=== PATIENT | male | born 1930 | race Caucasian/White ===

== ENCOUNTER → 2020-11-19 | Outpatient (REF) | payer MEDICARE ==
[~2020-11-19] MED LIST: CIPR25SS OR; COVI100V IM; HYDR25TA6 OR; LISI10TA4 OR; LISI20TA33 PO; METF500T13 PO; SIMV10TA2 OR; SIMV20TA2 OR; SIMV40TA20 PO; VICO5TAB OR
[2020-11-19 10:52] LABS: HEMOGLOBIN A1c 6.2 %
== END ==
LOC: M LAB REF 10:10
PROVIDERS: ATTEND Family Medicine
DX: C91.10 Chronic lymphocytic leukemia of B-cell type not having achieved remission (principal); N18.9 Chronic kidney disease, unspecified; E11.9 Type 2 diabetes mellitus without complications; I12.9 Hypertensive chronic kidney disease with stage 1 through stage 4 chronic kidney disease, or unspecified chronic kidney disease